=== PATIENT | female | born 1975 | race Two or more races ===

== ENCOUNTER 2023-06-26 12:03 | Emergency (ER) | payer OTHER ==
[~2023-06-26] VITALS: Ht 172.7 cm; Wt 98.0 kg
[2023-06-26] MEDS ORDERED: METH-1182 PO (14:29)
[2023-06-26] MEDS ORDERED: IBUP-1456 PO (14:29)
[2023-06-26 14:40] VITALS: BP 97/63; PULSE 82; RESP 18; TEMP 98.4; O2SAT 98
== END 2023-06-26 14:44 | disposition home or self-care (01) ==
LOC: ER 12:03
DX: M62.838 Other muscle spasm (principal); V43.52XA Car driver injured in collision with other type car in traffic accident, initial encounter; Y93.89 Activity, other specified; Y92.488 Other paved roadways as the place of occurrence of the external cause; Y99.8 Other external cause status
CPT/HCPCS: 72040

== ENCOUNTER 2023-09-24 17:06 | Emergency (ER) | payer SELFPAY ==
[~2023-09-24] VITALS: Ht 172.7 cm; Wt 97.2 kg
[~2023-09-24 17:06] MED LIST: IBUP-1456 PO; METH-1182 PO
[2023-09-24 17:58] LABS: Basophils # (auto) 0.1 10 ^3/uL (0-0.2); Basophils % (auto) 0.6 % (0.0-2.0); Eosinophils # (auto) 0.2 10 ^3/uL (0-0.8); Hematocrit 41.7 % (36.0-46.0); Hemoglobin 13.3 g/dL (12.2-16.2); Lymphocytes # (auto) 3.5 10 ^3/uL (0.4-5.4); Lymphocytes % (auto) 30.8 % (10.0-50.0); Mean Corpuscular Hemoglobin 27.1 pg (28.0-32.0); Mean Corpuscular Hgb Conc. 31.9 g/dL (32.0-36.0); Mean Corpuscular Volume 85.1 fL (80.0-100.0); Monocytes % (auto) 9.2 % (0.0-12.0); Neutrophils # (auto) 6.4 10 ^3/uL (1.6-8.6); Neutrophils % (auto) 57.4 % (37.0-80.0); Nucleated Red Blood Cells % 0.1 %; Red Blood Cells 4.91 10^6/uL (4.0-5.20); Red Cell Distribution Width 14.6 % (11.8-14.3); White Blood Cell 11.2 10^3/uL (4.4-10.8)
[2023-09-24 18:15] LABS: Alanine Aminotransferase 16 U/L (7-40); Albumin 4.4 g/dL (3.2-4.8); Alkaline Phosphatase 87 U/L (46-116); Anion Gap 9 (5-15); Aspartate Aminotransferase 10 U/L (13-40); BUN/Creatinine Ratio 16.7 (10.0-20.0); Bilirubin, Total 0.2 mg/dL (0.2-1.0); Blood Urea Nitrogen 13 mg/dL (9-23); Calcium 9.2 mg/dL (8.7-10.4); Carbon Dioxide 23 mmol/L (20-30); Chloride 109 mmol/L (98-107); Glucose 87 mg/dL (74-106); Potassium 4.2 mmol/L (3.5-5.1); Sodium 141 mmol/L (136-145); Total Protein 6.6 g/dL (5.7-8.2)
[2023-09-24] MEDS: GABAPENTIN 300 MG CAP PO ONE (19:01)
[2023-09-24 19:03] VITALS: BP 134/78; PULSE 88; RESP 17; TEMP 97.7; O2SAT 99
[2023-09-24] MEDS ORDERED: GABA-1250 PO (19:59)
== END 2023-09-24 21:24 | disposition home or self-care (01) ==
LOC: ER 17:06
DX: G56.92 Unspecified mononeuropathy of left upper limb (principal); Z98.890 Other specified postprocedural states; Z79.899 Other long term (current) drug therapy
CPT/HCPCS: 36415; 72040; 80053; 85025; 93005; 93971

== ENCOUNTER 2024-06-06 10:55 | Emergency (ER) | payer MEDICAID ==
[~2024-06-06] VITALS: Ht 167.6 cm; Wt 92.3 kg
[~2024-06-06 10:55] MED LIST changes: +GABA-1250 PO
[2024-06-06] MEDS: methylPREDNISolone SOD SUCC 125 MG/2 ML VL IV ONE (11:45)
[2024-06-06] MEDS: diphenhdrAMINE HCL 50 MG/1 ML VL IV ONE (11:45)
[2024-06-06] MEDS: FAMOTIDINE (10MG/ML) 2ML VL IV ONE (11:45)
--- NOTE | 2024-06-06 11:45 | ED.PDOC ---
History of Present Illness(SKN HPI Comments 49-year-old presents for a possible allergic reaction. Possible cause: Eggs Complains of itchiness and scattered hives throughout the chest wall and has not tried therapies for the symptoms listed above Denies chest pain shortness of breath Chief Complaint: Nausea/Vomiting Time Seen by MD: 11:26 Primary Care Provider: DOES NOT KNOW History of Present Illness: Nurses Notes, Medications, Allergies Allergies: Coded Allergies: NO KNOWN ALLERGIES (Unverified , 06/26/23) Home Meds Active Scripts Triamcinolone Acetonide (Triamcinolone Acetonide) 0.1 % Cre, 1 GRAMS EX BID for 5 Days, #30 GRAMS 0 Refills Prov:ALCIDES LADD PRIMARY SPECIAL EDUCATION TEACHER 06/06/24 Calamine-Zinc Oxide (Calamine 8-8 %) 1 Kaylyn Kaylyn, 1 APPLIC EX QIDP for 10 Days, #1 BOTTLE 0 Refills Prov:ALCIDES LADD PRIMARY SPECIAL EDUCATION TEACHER 06/06/24 Hydroxyzine Hcl (Hydroxyzine Hcl) 25 Mg Tab, 1 TAB PO TIDPRN PRN for 14 Days, #42 TAB 0 Refills Prov:ALCIDES LADD PRIMARY SPECIAL EDUCATION TEACHER 06/06/24 Gabapentin (Gabapentin) 300 Mg Cap, 1 CAP PO Q6HP PRN, #30 CAP 0 Refills Prov:MARISABEL ANSARI PAC 09/24/23 Methocarbamol (Methocarbamol) 750 Mg Tab, 750 MG PO BID, #20 TAB Prov:JESSE KNOX 06/26/23 Ibuprofen (Ibuprofen) 800 Mg Tab, 1 TAB PO TID, #30 TAB Prov:JESSE KNOX 06/26/23 Information Source: Patient Mode of Arrival: Ambulatory Past Medical History PAST MEDICAL HISTORY: Denies Surgical History: Denies all surgeries MANAGER FAST FOOD History: No Pertinent MANAGER FAST FOOD History Family History Family History: Reviewed,noncontributory to illness, No family hx of Cancer, No family hx of DM, No family hx of Heart olga, No family hx of HTN, No family hx ofKidney olga, No family hx of Liver olga, No family hx of Lung olga, No family hx of Stroke Social History Smoker: Non-Smoker Alcohol: Denies ETOH Use Drugs: Denies Drug Use Lives In: Home All Other Systems: Reviewed and Negative (Per HPI) Physical Exam General Appearance: No Apparent Distress, Normal HEENT: Normal ENT Inspection, Pharynx Normal, TMs Normal Neck: Full Range of Motion, Non-Tender, Normal, Normal Inspection Respiratory: Chest Non-Tender, Lungs Clear, No Accessory Muscle Use, No Respiratory Distress, Normal Breath Sounds Cardiovascular: No Edema, No JVD, No Murmur, No Gallop, Normal Peripheral Pulses, Regular Rate/Rhythm Breast Exam: Deferred Gastrointestinal: No Organomegaly, Non Tender, No Pulsatile Mass, Normal Bowel Sounds, Soft Genitalia: Deferred Pelvic: Deferred Rectal: Deferred Extremities: No calf tenderness, Normal capillary refill, Normal inspection, Normal range of motion, Non-tender, No pedal edema Musculoskeletal : Apperance: Normal Neurologic: Alert, insurance verification clerk II-XII nml as Tested, No Motor Deficits, Normal Affect, Normal Mood, No Sensory Deficits Cerebellar Function: Normal Reflexes: Normal Skin: Dry, Normal Color, Rash (scattered hives throuhout chest wall), Warm Lymphatic: No Adenopathy Was a procedure done? Was a procedure done?: No Differential Diagnosis (INTG) Differential Diagnosis: Other Differential Diagnosis: Atopic dermatitis X-Ray, Labs, Meds, VS Vital Signs Date Time Temp Pulse Resp B/P (MAP) Pulse Ox O2 Delivery O2 Flow Rate FiO2 06/06/24 11:48 85 17 96 Room Air 06/06/24 11:48 97.9 85 17 134/58 (83) 96 97.9 06/06/24 11:05 97.9 85 17 134/58 (83) 96 X-Ray, Labs, Meds, VS Comment Pt presents ED for an allergic reaction. Solu-Medrol and Pepcid administered in ED for treatment. Patient reports significant improvement in symptoms following treatment. Patient was monitored in the ED for an extended amount of time. Patient was instructed to take hydroxyzine and use calamine lotion as needed for itchiness Follow-up with PCP in 1 to 2 days. Patient needs manager fleet referral for further testing Return to ED if symptoms persist, or sooner if symptoms worsen Time of 1ST Reevaluation: 13:30 Reevaluation 1ST: Improved Patient Education/Counseling: Diagnosis, Treatment Family Education/Counseling: Diagnosis, Treatment Departure 1 Departure Time of Disposition: 13:40 Impression: Primary Impression: Allergic reaction Qualified Codes: T78.40XA - Allergy, unspecified, initial encounter Disposition: HOME / SELF CARE / HOMELESS Condition: Fair e-Prescriptions Triamcinolone Acetonide (Triamcinolone Acetonide) 0.1 % Cre 1 GRAMS EX BID for 5 Days, #30 GRAMS 0 Refills Prov: ALCIDES LADD NP 06/06/24 Calamine-Zinc Oxide (Calamine 8-8 %) 1 Kaylyn Kaylyn 1 APPLIC EX QIDP for 10 Days, #1 BOTTLE 0 Refills Prov: ALCIDES LADD NP 06/06/24 Hydroxyzine Hcl (Hydroxyzine Hcl) 25 Mg Tab 1 TAB PO TIDPRN PRN for 14 Days, #42 TAB 0 Refills Prov: ALCIDES LADD NP 06/06/24 Discharged With: Self Critical Care Note Critical Care Time?: No Stability Stability form required: No Heart Score Heart Score: Heart Score Response (Comments) Value History N/A 0 EKG N/A 0 Age N/A 0 Risk Factors N/A 0 Troponin N/A 0 Total 0 ALCIDES LADD NP Jun 06, 2024 11:45
[2024-06-06 11:48] VITALS: BP 134/58; PULSE 85; RESP 17; TEMP 97.9; O2SAT 96
[2024-06-06] MEDS ORDERED: HYDR-3682 PO (13:42)
[2024-06-06] MEDS ORDERED: CALA1SUS2 EX (13:42)
[2024-06-06] MEDS ORDERED: TRIO1TP EX (13:42)
== END 2024-06-06 13:44 | disposition home or self-care (01) ==
LOC: ER 10:55
DX: T78.40XA Allergy, unspecified, initial encounter (principal); Z79.1 Long term (current) use of non-steroidal anti-inflammatories (NSAID); X58.XXXA Exposure to other specified factors, initial encounter
CPT/HCPCS: 99283; J1200; J2919; J3490